=== PATIENT | female | born 1975 | race African-American/Black ===

== ENCOUNTER 2019-10-07 16:10 | Emergency (ER) | payer OTHER ==
[~2019-10-07] VITALS: Ht 170.2 cm; Wt 98.9 kg
[~2019-10-07 16:10] MED LIST: ADULT LOW DOSE81 MG; AMITRIPTYLINE H25 M3; APIDRA; AUGMENTIN XR1000 MG PO; AVANDARYL 4 MG PO; BYSTOLIC2.5 MG; CYCLOBENZAPRINE5 MG PO; GLUCOPHAGE1000 MG PO; GLUMETZA1000; HUMALOG100 UNIT/1 SUBQ; IBUPROFEN 800800 MG PO; INVOKAMET 50-11 EACH PO; LANTUS SQ; LASIX 20 MG TAB20 MG; LIPITOR10 MG; LISINOPRIL10 MG; LISINOPRIL20 MG PO; MULTIVITAMINS; NEURONTIN600 MG PO; NORCO 5-325 TA1 EACH PO; VICODIN 5-5001 EACH PO; VITAMIN D1000 UNI1; ZOFRAN4 MG PO
[2019-10-07 17:00] LABS: URINE BILIRUBIN NEGATIVE (Negative); URINE BLOOD 2+ (Negative); URINE CLARITY CLEAR; URINE COLOR YELLOW; URINE GLUCOSE-RANDOM* 1+ (Negative); URINE KETONES TRACE (Negative); URINE LEUKOCYTES-REFLEX NEGATIVE (Negative); URINE NITRITE-REFLEX NEGATIVE (Negative); URINE PROTEIN (DIPSTICK) 3+ (Negative); URINE SPECIFIC GRAVITY >= 1.030 (1.005-1.035); URINE UROBILINOGEN 0.2 E.U./dl (0.2-1.0)
[2019-10-07 17:06] LABS: CASTS None Seen /LPF (None Seen); CRYSTALS None Seen /LPF (None Seen); SQUAMOUS 4-10 Moderate /LPF (0-3)
[2019-10-07 17:07] LABS: BACTERIA-REFLEX 1-9 Few /HPF (None Seen); URINE RBC 3-10 Few /HPF (0-2); URINE WBC-REFLEX 0-5 Rare /HPF (0-5)
[2019-10-07 17:40] LABS: ABSOLUTE NEUTROPHILS 4.8 thou/uL (1.4-8.2); BASOPHILS 1.4 % (0.0-2.0); EOSINOPHILS 3.5 % (0.0-3.0); HEMATOCRIT 31.8 % (37.0-47.0); HEMOGLOBIN 10.1 gm/dL (12.0-15.0); MCH 25.1 pg (26.0-34.0); MCHC 31.7 g/dL (28.0-37.0); MCV 79.3 fL (80.0-100.0); MONOCYTES 9.3 % (1.0-8.0); PLATELET COUNT 281 thou/uL (150-400); POLYS 60.8 % (36.0-66.0); RBC 4.02 mil/uL (4.20-5.00)
[2019-10-07 17:51] LABS: ANION GAP 10 mmol/L (7-16); BUN 11 mg/dL (7-18); CALCIUM 8.9 mg/dL (8.5-10.1); CHLORIDE 102 mmol/L (98-107); CO2 23 mmol/L (21-32); CREATININE 1.4 mg/dL (0.6-1.0); GLUCOSE 245 mg/dL (74-106); POTASSIUM 5.4 mmol/L (3.5-5.1); SODIUM 135 mmol/L (136-145)
[2019-10-07 18:00] LABS: ALBUMIN 2.6 g/dL (3.4-5.0); LIPASE 146 U/L (73-393); SGOT 23 U/L (15-37); SGPT 11 U/L (30-65); TOTAL BILIRUBIN 0.5 mg/dL (<0.1-1.0); TOTAL PROTEIN 6.8 g/dL (6.4-8.2); TROPONIN-I <0.06 ng/mL (<0.06)
[2019-10-07] MEDS ORDERED: MOBIC7.5 MG PO (21:04)
[2019-10-07] MEDS ORDERED: ZANTAC 150MG T150 MG PO (21:04)
[2019-10-07 21:18] VITALS: BP 148/77
--- NOTE | 2019-10-08 08:05 | EKG ---
[facility] [place] [address] ELECTROCARDIOGRAM REPORT Name: SAVANNAH COOPER Room [id number] Admission: 10/07/19 Attend Phys: Discharge: 10/07/19 Date of : 71 Report #: [id number] THIS REPORT FOR: cc: Verena Pham MD, Keninde A. MD Lundgren,Peter Heaton MD [facility] ~ THIS REPORT FOR: //name// [facility] ED Test Date: 2019-10-07 Test Time: 16:15:48 Pat Name: SAVANNAH COOPER Department: Room: Gender: F Web Weaver: SIMRAN : 1975 Requested By: Lisa Urena Order Number: [id number] MD: Peter Adhikari Measurements Intervals [place] Rate: 89 P: 63 SD: 135 QRS: 6 QRSD: 92 T: 3 QT: 359 QTc: 437 Interpretive Statements Sinus rhythm Poor R wave progression Baseline wander in lead(s) I Compared to ECG 04/01/2015 12:38:15 Poor R wave progression is now present Electronically Signed On 10-08-2019 8:04:09 COMMUNITY FACILITATOR by Peter Adhikari [email or web address] <ELECTRONICALLY SIGNED> By: Peter Adhikari MD, FACC 10/08/19 0804 1615 1615 Peter Adhikari MD, FAC /EPI
--- NOTE | 2019-10-08 08:09 | EKG ---
[facility] [place] [address] ELECTROCARDIOGRAM REPORT Name: SAVANNAH COOPER [facility] [id number] Admission: 10/07/19 Attend Phys: Discharge: 10/07/19 Date of : 71 Report #: [id number] THIS REPORT FOR: cc: Verena Pham MD, Keninde A. MD Lundgren,Peter Heaton MD [facility] ~ THIS REPORT FOR: //name// [facility] ED Test Date: 2019-10-07 Test Time: 20:17:58 Pat Name: SAVANNAH COOPER Department: Room: Gender: F Community Mental Health Worker: SIMRAN : 1975 Requested By: Lisa Urena Order Number: [id number] MD: Peter Adhikari Measurements Intervals [place] Rate: 84 P: 67 WA: 138 QRS: 14 QRSD: 92 T: 28 QT: 368 QTc: 436 Interpretive Statements Sinus rhythm No significant abnormality Compared to ECG 04/01/2015 12:38:15 No significant changes Electronically Signed On 10-08-2019 8:08:06 VB NET DEVELOPER by Peter Adhikari [email or web address] <ELECTRONICALLY SIGNED> By: Peter Adhikari MD, [facility] 10/08/19 0808 16 16 Peter Adhikari MD, [facility] /EPI
== END 2019-10-07 21:18 | disposition home or self-care (01) ==
LOC: ER 16:10
PROVIDERS: Nurse Practitioner Family
DX: R07.89 Other chest pain (principal); E11.9 Type 2 diabetes mellitus without complications; I10 Essential (primary) hypertension; Z98.890 Other specified postprocedural states